=== PATIENT | female | born 1960 | race Hispanic/Latino ===

== ENCOUNTER 2018-07-29 13:57 | Emergency (ER) | payer OTHER ==
[2018-07-29 14:06] VITALS: O2SAT 98
[2018-07-29] MEDS ORDERED: Albuterol-Ipratrop 3 mg / 0.5 (3 ml) UD INH STA (15:06)
[2018-07-29] MEDS ORDERED: Albuterol-Ipratrop 3 mg / 0.5 (3 ml) UD ONE (15:16)
--- NOTE | 2018-07-29 15:23 | ED PDOC ---
HPI: Influenza Time Seen by Provider: 07/29/18 15:00 Chief Complaint: Cough, Cold, Congestion Chief Complaint (Provider): cough History Per: Patient Exam Limitations: no limitations Onset/Duration Of Symptoms: Days (3 weeks), Persistent Symptoms include: fever (subjective), bodyaches, sore throat, cough, difficulty breathing (tightness). denies: nasal congestion, vomiting, diarrhea, chest pain Additional complaint(s):: used a friend's albuterol with some relief heavy smoker no known sick contacts or recent travel PMD None Past Medical History Reviewed: Historical Data, Nursing Documentation, Vital Signs Vital Signs: Last Vital Signs Temp 97.3 F L 07/29/18 14:06 Pulse 97 H 07/29/18 14:06 Resp 20 07/29/18 14:06 BP 134/78 07/29/18 14:06 Pulse Ox 98 07/29/18 14:06 - Medical History PMH: No Chronic Diseases - Surgical History Surgical History: Appendectomy, - Family History Family History: States: No Known Family Hx - Social History Current smoker - smoking cessation education provided: Yes SMOKER/PACKS PER DAY:: 1 - Home Medications Home Medications: Ambulatory Orders Medication Instructions Recorded Albuterol HFA [Ventolin HFA 90 2 puff IH Q4H PRN #1 inh 07/29/18 mcg/actuation (8 g)] Azithromycin [Zithromax] 250 mg PO DAILY #6 dose 07/29/18 Prednisone 50 mg PO DAILY #4 tablet 07/29/18 - Allergies Allergies/Adverse Reactions: Allergies Allergy/AdvReac Type Severity Reaction Status Date / Time No Known Allergies Allergy Verified 07/29/18 14:08 Review of Systems ROS Statement: Except As Marked, All Systems Reviewed And Found Negative (and as per HPI) Constitutional: Positive for: Fever, Sweats. Negative for: Chills Cardiovascular: Negative for: Chest Pain, Light Headedness Respiratory: Positive for: Cough, Shortness of Breath, Sputum (white). Negative for: Hemoptysis Physical Exam - Reviewed Nursing Documentation Reviewed: Yes Vital Signs Reviewed: Yes - Physical Exam Appears: Positive for: Non-toxic, No Acute Distress Head Exam: Positive for: ATRAUMATIC, NORMOCEPHALIC Skin: Positive for: Warm, Dry Eye Exam: Positive for: EOMI, PERRL ENT: Negative for: Pharyngeal Erythema, Tonsillar Exudate Neck: Positive for: Painless ROM, Supple Cardiovascular/Chest: Positive for: Regular Rate, Rhythm. Negative for: Murmur Respiratory: Positive for: Rhonchi, Wheezing. Negative for: Accessory Muscle Use, Rales, Respiratory Distress Gastrointestinal/Abdominal: Positive for: Soft. Negative for: Tenderness Back: Positive for: Normal Inspection. Negative for: Muscle Spasm Extremity: Positive for: Normal ROM. Negative for: Pedal Edema Lymphatic: Negative for: Adenopathy Neurological/Psych: Positive for: Awake, Alert. Negative for: Motor/Sensory Deficits Medical Decision Making Medical Decision Makin Chest x-ray reviewed by me, shows no acute disease Patient reports feeling much better after treatment; likely acute bronchitis Patient to be given Zpack, albuterol and prednisone prescription and informed to take medications as prescribed. Informed on mandatory follow up at clinic by end of this week. - ECG O2 Sat by Pulse Oximetry: 98 Disposition - Clinical Impression Clinical Impression: Bronchitis Counseled Patient/Family Regarding: Studies Performed, Diagnosis, Need For Followup, Rx Given - Disposition Referrals: [facility] [Outside] (FOLLOWUP AT CLINIC BY THE END OF THE WEEK) Disposition: Routine/Home Disposition Time: 16:33 Condition: IMPROVED Prescriptions: Albuterol HFA [Ventolin HFA 90 mcg/actuation (8 g)] 2 puff IH Q4H PRN #1 inh PRN Reason: ASTHMA Azithromycin [Zithromax] 250 mg PO DAILY #6 dose Prednisone 50 mg PO DAILY #4 tablet Instructions: Acute Bronchitis, Adult (DC), Quitting Smoking Forms: [facility] ED School/Work Excuse
[2018-07-29 17:27] VITALS: BP 110/60; PULSE 74; RESP 22; TEMP 98
--- NOTE | 2018-07-29 17:41 | RAD ---
HISTORY: cough sob COMPARISON: None available TECHNIQUE: Chest PA and lateral FINDINGS: Examination limited by habitus. LUNGS: No focal consolidation. Please note that chest x-ray has limited sensitivity for the detection of pulmonary masses. PLEURA: No significant pleural effusion identified. No definite pneumothorax . CARDIOVASCULAR: Heart size appears within normal limits. Atherosclerotic calcifications. OSSEOUS STRUCTURES: Osseous demineralization. Degenerative changes. VISUALIZED UPPER ABDOMEN: Unremarkable. OTHER FINDINGS: None. IMPRESSION: No focal consolidation.
== END 2018-07-29 17:27 | disposition home or self-care (01) ==
LOC: H.ER 13:57
DX: J40 Bronchitis, not specified as acute or chronic (principal); F17.210 Nicotine dependence, cigarettes, uncomplicated; Z79.899 Other long term (current) drug therapy
CPT/HCPCS: 71046; 96372; 99282; J2930